=== PATIENT | female | born 1950 | race Caucasian/White ===

== ENCOUNTER → 2021-02-16 | Emergency (ER) | payer MEDICARE, BC ==
[~2021-02-16] VITALS: Ht 154.9 cm; Wt 79.5 kg
[~2021-02-16] MED LIST: ALPR-623 PO; CIPR-202 PO; DIAZIDE PO; FLUO20CA39 PO
[2021-02-16 10:08] VITALS: BP 141/91
== END | disposition home or self-care (01) ==
LOC: ER 09:53
DX: M79.645 Pain in left finger(s) (principal); Z79.2 Long term (current) use of antibiotics; Z79.899 Other long term (current) drug therapy
CPT/HCPCS: 99282

== ENCOUNTER 2021-06-20 09:32 | Day surgery (SDC) | payer MEDICARE, BC ==
[2021-06-16 13:03] LABS: BASOPHILS # (AUTO) 0.1 X10'3 (0-0.2); BASOPHILS % (AUTO) 1.2 % (0-1); EOSINOPHILS # (AUTO) 0.2 X10'3 (0-0.9); EOSINOPHILS % (AUTO) 2.9 % (0-6); LYMPHOCYTES # (AUTO) 1.9 X10'3 (1.1-4.8); LYMPHOCYTES % (AUTO) 31.5 % (21-51); MEAN CORPUSCULAR HEMOGLOBIN 28.3 PG (27.0-31.0); MEAN CORPUSCULAR HGB CONC 32.4 g/dL (33.0-36.5); MEAN CORPUSCULAR VOLUME 87.2 FL (78-98); MEAN PLATELET VOLUME 8.4 FL (7.4-10.4); MONOCYTES # (AUTO) 0.5 X10'3 (0-0.9); MONOCYTES % (AUTO) 7.8 % (2-12); NEUTROPHILS # (AUTO) 3.5 X10'3 (1.8-7.7); NEUTROPHILS % (AUTO) 56.6 % (42-75); PRE OP HEMOGLOBIN 11.4 g/dL (12.0-16.0); PRE OP PLATELET COUNT 306 X10'3 (140-440); RED BLOOD COUNT 4.01 X10'6 (4.20-5.60)
[2021-06-16 13:18] LABS: ALBUMIN 3.6 G/DL (3.4-5.0); ALBUMIN/GLOBULIN RATIO 0.8 (1.1-1.5); ALKALINE PHOSPHATASE 132 IU/L (46-116); BLOOD UREA NITROGEN 27 MG/DL (7-18); BUN/CREATININE RATIO 26.2 (6.6-38.0); CALCIUM 9.5 MG/DL (8.5-10.1); CHLORIDE 106 MMOL/L (99-107); CREATININE 1.03 MG/DL (0.40-0.90); PRE OP ALT 24 U/L (30-65); PRE OP ANION GAP 12 (8-16); PRE OP AST 20 U/L (10-37); PRE OP BILIRUB, TOTAL 0.2 MG/DL (0.0-1.0); PRE OP GLUCOSE 187 MG/DL (70-104); PRE OP POTASSIUM 3.6 MMOL/L (3.4-5.1); PRE OP SODIUM 144 MMOL/L (135-145); TOTAL CARBON DIOXIDE 26.1 MMOL/L (24-32); TOTAL PROTEIN 8.1 G/DL (6.4-8.2); eGFR 53 ML/MIN
[~2021-06-20] VITALS: Ht 154.9 cm; Wt 82.9 kg
[~2021-06-20 09:32] MED LIST changes: -ALPR-623 PO; +ALPR0.5T9 PO; +ATOR40TA72; -CIPR-202 PO; -DIAZIDE PO; -FLUO20CA39 PO; +LISI20TA28 PO; +METF-1203 PO; +PIOG45TA65 PO; +TRIA1TAB5 PO; +ceFAZolin 2gm in dextrose, iso 50 ML IV ONE; +famotidine 20mg tablet PO ONE; +ringers solution, lacted 1,000 ML IV SCH; +vancomycin 1,500 MG in NS 300ml IV soln IV ONE
[2021-06-20 09:45] VITALS: BP 148/78
[2021-06-20] MEDS ORDERED: cloNIDine hcl/PF 100mcg/ml inj ONE (11:34)
[2021-06-20] MEDS ORDERED: ROPIVAcaine 0.5% (5mg/ml) 30ml vial ONE (11:42)
[2021-06-20] MEDS ORDERED: fentaNYL/PF 50MCG/1 ML 2ML syringe ONE (11:45)
[2021-06-20] MEDS ORDERED: midazolam 1 mg/ML 2ml injection ONE (11:46)
[2021-06-20] MEDS ORDERED: sevoflurane 250ml liquid IH ONE (12:01)
[2021-06-20] MEDS ORDERED: propofol inj 20 ML IV ONE (12:56)
[2021-06-20 13:10] VITALS: BP 141/78
--- NOTE | 2021-06-20 13:10 | NUR ---
Received from OR via [facility], accompanied by Anesthesiologist DR. MESA and report given by Anesthesiologist. PATIENT WAKING UP, NO S/S OF PAIN, V/S WNL, SCD ON, 20G TO LUE, drsg to R WRIST, SPLINT IN PLACE, SLING ON-CDI, FINGERS PINK WARM, CSM-INTACT
[2021-06-20 13:20] VITALS: BP 132/60
[2021-06-20] MEDS ORDERED: proCHLORperazine 10 MG/2 ml inj IV PRN (13:20)
[2021-06-20] MEDS ORDERED: morphine 2 MG/ML inj. syringe IV PRN (13:20)
[2021-06-20] MEDS ORDERED: morphine 4 MG/ML inj SYRINge IV PRN (13:20)
[2021-06-20] MEDS ORDERED: ringers solution, lacted 1,000 ML IV SCH (13:20)
[2021-06-20] MEDS ORDERED: ondansetron/PF 4mg/2ml inj IV PRN (13:20)
[2021-06-20] MEDS ORDERED: meperidine/PF 25mg/ml syringe IV PRN ×3 (13:20)
[2021-06-20 13:30] VITALS: BP 129/57
[2021-06-20 13:40] VITALS: BP 136/62
[2021-06-20 13:50] VITALS: BP 132/64
[2021-06-20] MEDS ORDERED: HYDROcodone/acetaminophen 5mg/325mg tablet PO ONE (14:00)
--- NOTE | 2021-06-20 14:00 | NUR ---
PATIENT A&OX4, DENIES PAIN BUT GIVEN 1 NORCO AT HOME FOR POTENTIAL PAIN-PER PT REQUEST, V/S WNL, SCD OFF, 20G TO LUE D/C, RIGHT WRIST DRESSING CDI W/SPLINT AND SLING. ICE AND ELEVATED RUE. FINGERS WARM AND PINK, [facility]SM-INTACT, FINGERS STILL NUMB FROM BLOCK BUT SOME MOVEMENT NOTED. I HAVE REVIEWED D/C INSTRUCTIONS WITH PATIENT and they have verbalized understanding patient d/c home with all belongings and family gave transport home.
== END 2021-06-20 14:00 | disposition home or self-care (01) ==
LOC: PAS 09:32
PROVIDERS: ATTEND Orthopaedic Surgery
DX: S52.571A Other intraarticular fracture of lower end of right radius, initial encounter for closed fracture (principal); G89.18 Other acute postprocedural pain; I10 Essential (primary) hypertension; F32.9 Major depressive disorder, single episode, unspecified; F41.9 Anxiety disorder, unspecified; E11.9 Type 2 diabetes mellitus without complications; Z79.84 Long term (current) use of oral hypoglycemic drugs; Z79.899 Other long term (current) drug therapy; Z20.822 Contact with and (suspected) exposure to COVID-19; Z98.41 Cataract extraction status, right eye; Z98.42 Cataract extraction status, left eye; Z98.890 Other specified postprocedural states; W19.XXXA Unspecified fall, initial encounter; Y93.89 Activity, other specified; Y92.89 Other specified places as the place of occurrence of the external cause; Y99.8 Other external cause status
CPT/HCPCS: 25609; 36415; 64417; 76942; 80053; 82948; 85025; 93005; A6222; C1713; J0735; J2250; J2704; J3010; J3370; J7040; J7120; U0003; U0005; Z7506; Z7508; Z7512; A4618; A6446; A6449; A7000; J2795

== ENCOUNTER 2022-05-12 10:22 | Emergency (ER) | payer MEDICARE, BC ==
[~2022-05-12] VITALS: Ht 154.9 cm; Wt 84.2 kg
[~2022-05-12 10:22] MED LIST changes: -ceFAZolin 2gm in dextrose, iso 50 ML IV ONE; -famotidine 20mg tablet PO ONE; -ringers solution, lacted 1,000 ML IV SCH; -vancomycin 1,500 MG in NS 300ml IV soln IV ONE
[2022-05-12 10:36] VITALS: BP 183/92
== END 2022-05-12 12:50 | disposition home or self-care (01) ==
LOC: ER 10:22
DX: S62.396D Other fracture of fifth metacarpal bone, right hand, subsequent encounter for fracture with routine healing (principal); F41.9 Anxiety disorder, unspecified; Z79.899 Other long term (current) drug therapy; X58.XXXD Exposure to other specified factors, subsequent encounter
CPT/HCPCS: 73110; 99283

== ENCOUNTER 2025-06-06 06:45 | Emergency (ER) | payer MEDICARE, BC ==
[~2025-06-06] VITALS: Ht 154.9 cm; Wt 74.8 kg
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
[2025-06-06] MEDS ORDERED: CYCL-1 PO (08:21)
--- NOTE | 2025-06-06 08:35 | VASCULAR REPORT ---
Right lower extremity venous duplex Clinical History: Pain. Comparison: None Findings: Duplex Doppler evaluation of the deep venous systems of the right lower extremity from the common femoral veins to the popliteal veins including color Doppler and spectral/pulsed waveform analysis was performed. RIGHT SIDE: The common femoral vein demonstrates appropriate compressibility and waveform variability. There is compressibility/patency of the great saphenous vein at the proximal thigh. The femoral vein demonstrates appropriate compressibility and waveform variability. The deep femoral vein demonstrates appropriate compressibility and waveform variability. The popliteal vein demonstrates appropriate compressibility and waveform variability. There is normal compressibility at the tibioperoneal trunk. LEFT SIDE: The common femoral vein demonstrates appropriate compressibility and waveform variability. Impression: 1. No right femoropopliteal venous thrombosis.
[2025-06-06 08:43] VITALS: BP 145/80; PULSE 73; RESP 16; TEMP 98; O2SAT 98
== END 2025-06-06 08:44 | disposition home or self-care (01) ==
LOC: ER 06:45
DX: S76.811A Strain of other specified muscles, fascia and tendons at thigh level, right thigh, initial encounter (principal); E11.9 Type 2 diabetes mellitus without complications; I10 Essential (primary) hypertension; Z79.899 Other long term (current) drug therapy; Z79.84 Long term (current) use of oral hypoglycemic drugs; X58.XXXA Exposure to other specified factors, initial encounter; Y93.89 Activity, other specified; Y92.89 Other specified places as the place of occurrence of the external cause; Y99.8 Other external cause status
CPT/HCPCS: 93971; 99284